=== PATIENT | female | born 1950 | race Caucasian/White ===

== ENCOUNTER → 2017-02-09 | Outpatient (CLI) | payer MEDICARE, OTHER ==
[~2017-02-09] MED LIST: AC325T PO; APIX5TAB PO; CALC500T7 PO; DLT180CCR PO; LORA10CA PO; MTF500TCR PO; OMEP20CA6 PO
== END ==
LOC: RT 08:39
PROVIDERS: ATTEND Internal Medicine
DX: I48.91 Unspecified atrial fibrillation (principal)
CPT/HCPCS: 93005